=== PATIENT | female | born 1940 | race African-American/Black ===

== ENCOUNTER 2022-04-22 11:27 | Outpatient (CLI) | payer MEDICARE ==
[2022-04-22 12:42] LABS: Hemoglobin 12.5 g/dL (12.0-15.5); Mean Corpuscular HGB CONC 32.1 g/dL (32.0-36.0); Mean Corpuscular Hemoglobin 30.9 pg (27.0-33.0); Mean Corpuscular Volume 96.3 fl (81.6-98.3); Mean Platelet Volume 10.8 fl (7.4-10.4); Platelet Count 244 10x3/uL (150-450); RBC Distribution Width 14.1 % (11.5-14.5); Red Blood Cell (RBC) Count 4.04 10x6/uL (3.90-5.03); White Blood Cell (WBC) Count 4.8 10x3/uL (3.5-10.5)
[2022-04-22 13:06] LABS: Anion Gap 14 mmol/L (10-20); BUN (Urea Nitrogen) 16 mg/dL (9.8-20.1); Calc. Creatinine Clearance 0 mL/min (70-130); Calcium 8.7 mg/dL (7.8-10.44); Carbon Dioxide 23 mmol/L (23-31); Chloride 106 mmol/L (98-107); Estimated GFR 69; Glucose 68 mg/dL (83-110); Potassium 4.1 mmol/L (3.5-5.1); Sodium 139 mmol/L (136-145)
== END 2022-04-22 11:28 | disposition home or self-care (01) ==
LOC: CSHLAB 11:27
PROVIDERS: ATTEND Podiatrist Foot & Ankle Surgery
DX: Z01.812 Encounter for preprocedural laboratory examination (principal); M20.11 Hallux valgus (acquired), right foot
CPT/HCPCS: 80048; 85027

== ENCOUNTER 2022-04-29 10:08 | Day surgery (SDC) | payer MEDICARE ==
[2022-04-27 12:01] VITALS: BMI 23.4
[2022-04-29] MEDS ORDERED: Bupivacaine PF 0.5% 30 ML VIAL ONE (11:34)
[2022-04-29] MEDS ORDERED: Neomycin-Polymyxin 1 ML AMP ONE (11:34)
[2022-04-29] MEDS ORDERED: CEFAZOLIN 2 GM VIAL ONE (12:10)
[2022-04-29] MEDS ORDERED: PROPOFOL 20 ML ONE (12:22)
[2022-04-29] MEDS ORDERED: Fentanyl 100 MCG/2 ML VIAL ONE (12:22)
[2022-04-29] MEDS ORDERED: Lidocaine 1% PF 5 ML VIAL ONE (12:22)
[2022-04-29] MEDS ORDERED: ePHEDrine Sulfate 50 MG/10 ML VIAL ONE (12:52)
[2022-04-29] MEDS ORDERED: HYDROcodone/Acetaminophen 5/325 mg Tablet ONE (14:31)
== END 2022-04-29 14:50 | disposition home or self-care (01) ==
LOC: CSHSDC 10:08
PROVIDERS: ATTEND Podiatrist Foot & Ankle Surgery
PROC: 0QSN04Z Reposition Right Metatarsal with Internal Fixation Device, Open Approach (ICD-10-PCS; principal; 2022-04-29)
DX: M20.11 Hallux valgus (acquired), right foot (principal); M21.611 Bunion of right foot; M19.071 Primary osteoarthritis, right ankle and foot; I10 Essential (primary) hypertension; E03.9 Hypothyroidism, unspecified; K21.9 Gastro-esophageal reflux disease without esophagitis; Z79.899 Other long term (current) drug therapy
CPT/HCPCS: J2704; J3010; S0020